=== PATIENT | female | born 1975 | race Caucasian/White ===

== ENCOUNTER 2018-08-24 17:45 | Emergency (ER) | payer MEDICAID ==
[~2018-08-24] VITALS: Ht 162.6 cm; Wt 73.5 kg
[2018-08-24 17:50] VITALS: Ht 162.6 cm; Wt 73.5 kg
[2018-08-24 18:22] LABS: BASOPHIL % 0.8 % (0-2); PLATELET COUNT 293 x10^3mcL (130-400); RED CELL DISTRIBUTION WIDTH 14.1 % (11.5-14.5)
[2018-08-24 18:23] LABS: CALCIUM 9.6 mg/dL (8.5-10.1); CARBON DIOXIDE 28.9 mmol/L (21-32); CHLORIDE SERUM 104 mmol/L (98-107); CREATININE SERUM 0.9 mg/dL (0.6-1.0); GFR1 > 60 mL/min; GLUCOSE SERUM 100 mg/dL (74-106); POTASSIUM SERUM 4.1 mmol/L (3.5-5.1); SODIUM SERUM 141 mmol/L (136-145)
[2018-08-24 18:28] LABS: ALBUMIN 3.8 g/dL (3.4-5.0); ALKALINE PHOSPHATASE 61 U/L (46-116); ALT/SGPT 34 U/L (14-59); AST/SGOT 17 U/L (15-37); BILIRUBIN TOTAL 0.3 mg/dL (0.20-1.00); LIPASE 93 IU/L (73-393); TOTAL PROTEIN, SERUM 8.2 g/dL (6.4-8.2)
[2018-08-24 19:14] VITALS: BP 126/78
== END 2018-08-24 19:15 | disposition home or self-care (01) ==
LOC: ED 17:45
PROVIDERS: Emergency Medicine
DX: K80.20 Calculus of gallbladder without cholecystitis without obstruction (principal); K21.9 Gastro-esophageal reflux disease without esophagitis; Z88.2 Allergy status to sulfonamides
CPT/HCPCS: 36415; Q0092

== ENCOUNTER 2018-08-26 21:10 | Inpatient (IN) | payer MEDICAID ==
[~2018-08-26] VITALS: Ht 162.6 cm; Wt 74.8 kg
[2018-08-26 21:15] VITALS: Ht 162.6 cm; Wt 74.8 kg
--- NOTE | 2018-08-26 21:28 | NUR ---
PT AAOX4, NO S/S OF DISTRESS NOTED, RESPIRATIONS EVEN AND UNLABORED. PT SITTING UP IN BED PT REPORTS EPIGASTRIC AND FLANK PAIN X 2 WEEKS. PT REPORTS BEING SEEN HERE IN ED FOR SIMILAR SYMPTOMS AND BEING DIAGNOSED WITH KIDNEY STONES. PT REPORTS PRESCRIPTION FOR NORCO GIVEN AND IS EFFECTIVE ONLY FOR A SHORT TIME AND PAIN RETURNS. PT REPORTS PAIN IS A 10/10, PT LAST TOOK NORCO 1 HOUR PRIOR TO ARRIVAL. PT REPORTS DECREASED IN URINATION X 4 DAYS. PT HOOKED UP TO [employer]LE[employer] REFINING EQUIPMENT OPERATOR, DR CYR AT BEDSIDE PERFROMING MSE.
[2018-08-26 21:44] LABS: BASOPHIL % 1.4 % (0-2); PLATELET COUNT 292 x10^3mcL (130-400)
[2018-08-26 21:53] LABS: CALCIUM 9.4 mg/dL (8.5-10.1); CARBON DIOXIDE 24.1 mmol/L (21-32); CHLORIDE SERUM 103 mmol/L (98-107); GFR1 > 60 mL/min; GLUCOSE SERUM 142 mg/dL (74-106); POTASSIUM SERUM 3.8 mmol/L (3.5-5.1); SODIUM SERUM 139 mmol/L (136-145)
[2018-08-26 21:58] LABS: ALBUMIN 3.5 g/dL (3.4-5.0); ALKALINE PHOSPHATASE 71 U/L (46-116); ALT/SGPT 27 U/L (14-59); AST/SGOT 13 U/L (15-37); BILIRUBIN TOTAL 0.29 mg/dL (0.20-1.00); LIPASE 89 IU/L (73-393)
--- NOTE | 2018-08-26 22:17 | NUR ---
PT REPORTS PAIN DECREASED AND RATES PAIN 7/10 TO THE EPIGASTIC AND FLANK AREA. PT REPORTS PAIN IN INTOLERABLE. PT LAYING IN BED TALKING WITH AT BEDSIDE, NO S/S OF DISTRESS NOTED.
--- NOTE | 2018-08-26 23:11 | NUR ---
PT REPORTS PAIN HAS NOT DECREASED AND RATES PAIN 7/10. DR CYR MADE AWARE. PT AMBULATED TO AND FROM RESTROOM WITH STEADY GAIT.
[2018-08-27] VITALS (8 sets, daily range): BP systolic 93–133; BP diastolic 53–75
--- NOTE | 2018-08-27 00:27 | NUR ---
PT LAYING IN BED, NO S/S OF DISTRESS NOTED, PT TALKING WITH FAMILY AT BEDSIDE.
--- NOTE | 2018-08-27 01:12 | NUR ---
ULTRASOUND IN PROGRESS AT BEDSIDE.
--- NOTE | 2018-08-27 01:52 | NUR ---
ATTEMPTED TO GIVE REPORT TO DUY WHEELER. RN REPORTS SHE WILL CALL BACK IN 10 MIN.
--- NOTE | 2018-08-27 01:59 | NUR ---
REPORTS GIVEN TO DUY WHEELER.
--- NOTE | 2018-08-27 02:13 | NUR ---
RECEIVED PT FROM ER NURSE VIA [facility]ION. PT IS A&O X4 LATVIAN SPEAKING AND ABLE TO FOLLOW COMMANDS. PT IS ACCOMPANIED BY HER . ON ASSESSMENT THERE IS NO SYMPTOMS OF CHEST PAIN OR SHORTNESS OF BREATH. NO USE OF ACCESSORY MUSCLES OR LABORED BREATHING. TELE MONITOR IN PLACE #15 SINUS ARRYTHMIA. PT DENIES CHEST PAIN. BOWEL SOUNDS ACTIVE. PT STATES SHE IS CONSTIPATED AND HAS ABD PAIN 7/10. WILL MEDICATE PER ORDER. THERE IS A RAC IV THAT IS CLEAN DRY AND INTACT AT THIS TIME. PT TOLERATING WELL. SAFETY MEASURES ARE IN PLACE. BED IS IN THE LOWEST POSITION. CALL LIGHT IS WITHIN REACH. WILL CONTINUE TO MONITOR.
--- NOTE | 2018-08-27 03:16 | NUR ---
NORCO GIVEN FOR PAIN IN ABD AREA 08/31 WILL CONTINUE TO MONITOR.
[2018-08-27 04:15] LABS: FREE T4 1.22 ng/dL (0.76-1.46); FREE THYROXINE INDEX 2.9 ug/dL (1.4-4.5); T4(THYROXINE) 8.7 ug/dL (4.7-13.3)
[2018-08-27 05:02] LABS: T3 TOTAL 1.09 ng/mL
--- NOTE | 2018-08-27 05:29 | NUR ---
PT SLEPT FOR REMAINDER OF SHIFT. NO SIGNIFICANT CHANGES NOTED. PT RESTING IN BED WITH EYES CLOSED. NO FACIAL GRIMMACING. NO USE OF ACCCESSORY MUSCLES OR LABORED BREATHING. SAFETY MEASURES ARE IN PLACE. CALL LIGHT IS WITHIN REACH. WILL ENDORSE TO DAY SHIFT RN.
--- NOTE | 2018-08-27 07:30 | NUR ---
RECIEVED PT RESTING IN BED WITH NO C/O OF PAIN, DISTRESS, OR SOB. AT BEDSIDE. A/O X4. TELE MONITOR #15 CONNECTED TO PT. NS RUNNING AT 100ML/HR IN RAC 22G. IV INTACT AND PATENT WITH NO REDNESS OR INFLAMMATION. SAFETY PRECAUTIONS IN PLACE, CALL LIGHT WITHIN REACH, WILL MONITOR.
--- NOTE | 2018-08-27 09:09 | NUR ---
PT C/O 10/01 ABD PAIN, MEDICATED WITH NORCO PER EMAR, WILL REASSESS.
--- NOTE | 2018-08-27 10:31 | NUR ---
PT STABLE RESTING IN BED. NPO AT THIS TIME FOR POSSIBLE SURGERY, SURGICAL CONSULT WITH DR BURNETTE PENDING. SAFETY PRECAUTIONS IN PLACE, CALL LIGHT WITHIN REACH, WILL MONITOR.
--- NOTE | 2018-08-27 11:00 | NUR ---
PT IV REMOVED FROM RAC WITH CATHETER INTACT AND NEW ONE STARTED IN LEFT HAND. BOTH ARE NOTED WITH NO REDNESS OR INFLAMMATION. LH IV INTACT AND PATENT. NO DISTRESS NOTED.
[2018-08-27 12:09] LABS: microscopic required? YES; urine erythrocyte 1+ (NEGATIVE)
[2018-08-27 12:21] LABS: AMPHETAMINE QUAL UR NONE DETECTED (See below)
--- NOTE | 2018-08-27 12:47 | NUR ---
PT PREPPED AND READY FOR SURGERY. SURGICAL CONSENT SIGNED BY PT AND IN CHART. ALL SURGICAL EDUCATION WAS GIVEN TO PT VIA CHANGE OF ADDRESS CLERK AND MD. PT TRANSFERRED VIA GURNEY TO OR BY DUY YUN.
--- NOTE | 2018-08-27 15:30 | NUR ---
PT BROUGHT BACK TO ROOM FROM RECOVERY BY DUY YUN. PT A/O X3 WITH GROGGYNESS FROM SURGICAL MEDICATIONS VS WNL, PT REPORTS NO PAIN, DISTRESS, OR SOB AT THIS TIME. TELE MONITOR CONNECTED TO PT, DENIES CP OR PRESSURE. COMPLETED PROCEDURE WAS A LAP EMBER. ABD HAS 3 INCISIONAL SITES WITH SUTURES AND EVELYNE, COVERED WITH BANDAIDS. 1 VIJAY DRAIN TO RIGTHT SIDE OF ABDOMEN. ALL SITES AND DRESSINGS CDI. IV INTACT AND PATENT WITH NO REDNESS/INFLAMMATION SAFETY PRECAUTIONS IN PLACE, FAMILY AT BEDSIDE, CALL LIGHT WITHIN REACH, WILL MONITOR.
--- NOTE | 2018-08-27 17:25 | NUR ---
PT STABLE AT THIS TIME. NO C/O ANY PAIN AT THIS TIME. VS/WNL. DRAINED 100 ML OF RED FLUID FROM VIJAY DRAIN.
--- NOTE | 2018-08-27 18:00 | NUR ---
PT BLOOD PRESSURE AT 1745 93/59, MAP 70, HR 66 NOTED. TOOK V/S AGAIN AT 1800 AND BP WAS 111/62, MAP 78, HR 72. PT ASYMPTOMATIC AND STABLE AT THIS TIME. WILL MONITOR.
--- NOTE | 2018-08-27 18:40 | NUR ---
PT STABLE AT THIS TIME. NO C/O PAIN, DISTRESS, OR SOB. DAUGHTER AT BEDSIDE. IV INTACT AND PATENT WITH NO REDNESS OR INFLAMMATION. RUNNING NS AT 100ML/HR. INCISION SITES CDI. SAFETY PRECAUTIONS IN PLACE, CALL LIGHT WITHIN REACH, WILL ENDORSE TO NIGHT NURSE.
--- NOTE | 2018-08-27 19:30 | NUR ---
PT IS A/O x4. ON TELE #15, SR. DENIES ANY CHEST PAIN OR PRESSURE. PULSES ARE PRESENT. NO EDEMA NOTED. LUNGS CLEAR IN ALL FEILDS. ON RA, DENIES ANY SOB. EQUAL CHEST RISE AND FALL. NO SIGN OF RESP DISTRESS. BOWEL SOUND PRESENT x4. DENIES ANY ABD DISTRESS. 3 BANDAGES POST LAP EMBER ARE CLEAN AND INTACT. MINIMAL DRAINAGE NOTED ON BANDAGES. VIJAY DRAIN ON R SIDE IS INTACT, WITH SANGUINEOUS. DENIES ANY PAIN AT THIS TIME. ABD TENDER AND ROUND. NO FLATUS OR BURPING. IV ON LH, INTACT AND PATENT. BED IS AT LOWEST SETTING. CALL LIGHT WITHIN REACH. DAUGHTER IS AT BEDSIDE. WILL CONTINUE TO [facility].
--- NOTE | 2018-08-28 01:13 | NUR ---
PT IS RESTING IN BED. STATES THE PAIN MEDICATION IS HELPING. VIJAY DRAIN WAS EMPTIED WITH SANGINOUS OUTPUT. PT STATED SHE HAS BEGUN BURPING. BED IS A LOWEST SETTING. CALL LIGHT WITHIN REACH. IS AT BEDSIDE. WILL CONTINUE TO MONITOR.
[2018-08-28 05:08] VITALS: BP 108/54
[2018-08-28 06:02] LABS: BASOPHIL % 0.2 % (0-2); PLATELET COUNT 223 x10^3mcL (130-400); RED CELL DISTRIBUTION WIDTH 13.9 % (11.5-14.5)
[2018-08-28 06:18] LABS: CALCIUM 8.4 mg/dL (8.5-10.1); CARBON DIOXIDE 19.8 mmol/L (21-32); CHLORIDE SERUM 108 mmol/L (98-107); CREATININE SERUM 0.8 mg/dL (0.6-1.0); GFR1 > 60 mL/min; GLUCOSE SERUM 97 mg/dL (74-106); PHOSPHOROUS 2.9 mg/dL (2.5-4.9); POTASSIUM SERUM 4.6 mmol/L (3.5-5.1); SODIUM SERUM 139 mmol/L (136-145)
--- NOTE | 2018-08-28 07:00 | NUR ---
PT IS RESTING IN BED. DENIES ANY PAIN OR DISTRESS AT THIS TIME. NO ACUTE EVENT OCCURED AT NIGHT. PT AMBULATED TWICE DURING THE NIGHT. PT TOLERATED WELL. VIJAY DRAIN INTACT. AT BEDSIDE. BED IS AT LOWEST SETTING. CALL LIGHT WIHTIN REACH. WILL ENDORSE TO AM NURSE.
--- NOTE | 2018-08-28 07:20 | NUR ---
RECIEVED PRT RESTING IN BED. PT REPORTS NO DISTRESS, PAIN, OR SOB. AT BEDSIDE. TELE MONITOR 15 CONNECTED TO PT. DENIES CP OR PRESSURE. VIJAY DRAIN IN PLACE AND DRAINING SEROEURNEOUS FLUID. IV INTACT AND PATENT ON LH WITH NO REDNESS OR INFLAMMATION. SAFETY PRECAUTIONS IN PLACE, CALL LIGHT WITHIN REACH, WILL MONITOR.
--- NOTE | 2018-08-28 07:53 | NUR ---
PT REPORTS 7/10 RIGHT SHOULDER/ABD PAIN, MEDICATED WITH MORPHINE PER EMAR. DENIES CP OR PRESSURE WILL REASSESS.
--- NOTE | 2018-08-28 08:57 | NUR ---
PT REPORTS 7/10 ABD PAIN, MEDICATED WITH NORCO PER EMAR. WILL REASSESS.
[2018-08-28 09:14] VITALS: BP 114/73
--- NOTE | 2018-08-28 11:30 | NUR ---
PT STABLE AT THIS TIME. REPORTS NO PAIN, OR DISTRESS AT THIS TIME. PT TRANSFERED TO MED SURG, MONITOR REMOVED AND RETURNED TO REI MEALS ON WHEELS DRIVER. SAFETY PREC IN PLACE CALL LIGHT WITHIN REACH, WILL MONITOR.
[2018-08-28 12:51] VITALS: BP 120/68
--- NOTE | 2018-08-28 14:44 | NUR ---
PT STILL STABLE WITH NO C/O PAIN, DISTRESS, OR SOB. FAMILY AT BEDSIDE. 30 ML SERSANGOUS FLUID DRAINED FROM VIJAY DRAIN. SAFETY PRECAUTIONS IN PLACE, CALL LIGHT WITHIN REACH, WILL MONITOR.
--- NOTE | 2018-08-28 15:08 | NUR ---
PT REPORTS 7/10 ABD PAIN, MEDICATED WITH NORCO PER EMAR, WILL MONITOR.
[2018-08-28 18:04] VITALS: BP 115/65
--- NOTE | 2018-08-28 18:11 | NUR ---
PT STATES SHE IS PASSING A LARGE AMOUNT OF FLATULANCE BUT HAS NOT HAD A BM YET. CHARGE NOTIFIED AND MD AWARE. NO NEW ORDERS AT THIS TIME, WILL MONITOR.
--- NOTE | 2018-08-28 18:57 | NUR ---
PT STABLE AT THIS TIME. NO DISTRESS, PAIN, OR SOB NOTED. IV INTACT AND PATENT WITH NO REDNESS. VIJAY INTACT AND DRAINING SS FLUID SAFETY PRECAUTIONS IN PLACE, CAQLL LIGHT WITHIN REACH, WILL MONITOR TO NIGHT NURSE.
--- NOTE | 2018-08-28 19:18 | NUR ---
RECEIVED PATIENT IN BED AWAKE ALERT,AWAKE AND ORIENTED FRISIAN SPEAKING WITH NO C/O POST OPERATIVE AT THIS TIME, PATIENT MEDCIATED FOR PAIN EARLIER BY AM SHIFT. FAMILY MEMBERS AT BEDSIDE. DRESSING CDI WITH VIJAY INTACT WITH SMALL AMOUNT OF SS. IV HEPLOCK, FLUSHED WITH NS. WILL CONTINUE TO MONITOR. CALL LIGHT WITHIN REACH.
--- NOTE | 2018-08-28 20:34 | NUR ---
C/O POST OPERATIVE PAIN AT SCALE OF 7/10 PER PATIENT, MEDICATED WITH NORCO 1 TAB PO PRESCRIBED. WILL CONTINUE TO MONITOR.
[2018-08-28 20:52] VITALS: BP 114/73
--- NOTE | 2018-08-28 21:33 | NUR ---
HAD BM SOFT IN LARGGE AMOUNT, PERICARE GIVEN AFTER. REPOSITIONED FOR COMFORT.
--- NOTE | 2018-08-29 00:51 | NUR ---
APPEARS SLEEPING WITH EYES CLOSED AT THIS TIME AFTER PAIN MEDS WAS GIVEN. WILL CONTINUE TO MONITOR.
[2018-08-29 05:02] VITALS: BP 104/60
--- NOTE | 2018-08-29 05:08 | NUR ---
CHECKED AT INTERVALS FOR NEEDS AND COMFORT. C/O POST OP PAIN X1 THE ENTIRE SHIFT AND MEDICATED PRESCRIBED. VIJAY EMPTIED WITH 40ML SS OUTPUT. ALL NEEDS ATTENDED.
[2018-08-29 06:27] LABS: CALCIUM 8.5 mg/dL (8.5-10.1); CARBON DIOXIDE 27.6 mmol/L (21-32); CHLORIDE SERUM 109 mmol/L (98-107); CREATININE SERUM 0.8 mg/dL (0.6-1.0); GFR1 > 60 mL/min; GLUCOSE SERUM 97 mg/dL (74-106); MAGNESIUM 1.8 mg/dL (1.8-2.4); POTASSIUM SERUM 4.3 mmol/L (3.5-5.1); SODIUM SERUM 142 mmol/L (136-145)
[2018-08-29 06:31] LABS: BASOPHIL % 0.3 % (0-2); PLATELET COUNT 221 x10^3mcL (130-400); RED CELL DISTRIBUTION WIDTH 14.2 % (11.5-14.5)
--- NOTE | 2018-08-29 07:49 | NUR ---
HANDOFF REPORT RECEIVED. PATIENT AWAKE. STATED " IM OKAY...JUST SMALL PAIN ON ABDOMEN (2/10). NOTED VIJAY WITH SEROSANGUINOUS DRAIN. INSTRUCTED TO CALL RN FOR ANY NEED. ENCOURAGED INCREASED AMBULATION TODAY. PASSING GAS.
[2018-08-29 08:54] VITALS: BP 106/67
--- NOTE | 2018-08-29 10:39 | NUR ---
PATIENT SEEN AND EVALUATED BY MD ROONEY. POSSIBLE DISCHARGE TODAY.
--- NOTE | 2018-08-29 11:16 | NUR ---
Discount pharmacy card and list to low cost medical clinics given to patient by Spenser Kulkarni.
[2018-08-29 11:57] VITALS: BP 100/46
--- NOTE | 2018-08-29 12:21 | NUR ---
AMBULATING IN THE HALLWAY. NOT IN ANY DISTRESS. FOR DISCHARGE.
[2018-08-29 12:25] VITALS: BP 100/46
[2018-08-29] MEDS ORDERED: NORCO 10-325 T1 EACH (12:53)
--- NOTE | 2018-08-29 14:48 | NUR ---
DISCHARGE TEACHINGS DONE. HEP LOCK REMOVED. ALL ABDOMINAL DRESSINGS CHANGED AND REDRESSED. NOT IN ANY DISTRESS.
== END 2018-08-29 14:40 | disposition home or self-care (01) | DRG 263 ==
LOC: ED 21:10 → MU 08-27 01:10 → DU 08-27 01:10 → MU 08-28 11:25
PROVIDERS: Emergency Medicine; Surgery; ADMIT Internal Medicine
PROC: 0FT44ZZ Resection of Gallbladder, Percutaneous Endoscopic Approach (ICD-10-PCS; principal; 2018-08-27 13:00)
DX: K80.00 Calculus of gallbladder with acute cholecystitis without obstruction (principal); D64.9 Anemia, unspecified; K59.00 Constipation, unspecified; R73.9 Hyperglycemia, unspecified; Z88.6 Allergy status to analgesic agent; Z88.8 Allergy status to other drugs, medicaments and biological substances
CPT/HCPCS: 83880; 84439; 94150; G0378; J0330; J1170; J2270; J2405; J2704; J2710; J3010; J3490; J7030; J7120; Q0092